=== PATIENT | female | born 1955 | race Caucasian/White ===

== ENCOUNTER 2018-01-14 10:55 | Outpatient (CLI) | payer MEDICARE, MEDICAID | END 2018-01-14 10:56 | disposition home or self-care (01) | LOC: BICMAMMO 10:55 | PROVIDERS: ATTEND Family Medicine | DX: Z12.31 Encounter for screening mammogram for malignant neoplasm of breast (principal); Z80.3 Family history of malignant neoplasm of breast | CPT/HCPCS: 77063; 77067 ==

== ENCOUNTER 2019-01-15 09:17 | Outpatient (CLI) | payer MEDICARE, MEDICAID ==
--- NOTE | 2019-01-15 11:11 | MMO ---
Bilateral MAMMO Bilat Screen [facility]. CLINICAL HISTORY: Patient is 63 years old and is seen for screening. The patient has the following family history of breast cancer: half sister, malignant (generic), SHARE SAME DAD. The patient has no personal history of cancer. VIEWS: The views performed were: bilateral craniocaudal with tomosynthesis; bilateral mediolateral oblique with tomosynthesis; and left craniocaudal. FILMS COMPARED: The present examination has been compared to prior imaging studies performed at [facility] on 11/18/2013, 11/11/2015, 11/12/2016 and 01/14/2018. MAMMOGRAM FINDINGS: The breasts are almost entirely fat. There are stable benign appearing calcifications seen in both breasts. There are no suspicious masses, suspicious calcifications, or new areas of architectural distortion. IMPRESSION: THERE IS NO MAMMOGRAPHIC EVIDENCE OF MALIGNANCY. A ROUTINE FOLLOW-UP MAMMOGRAM IN 1 YEAR IS RECOMMENDED. THE RESULTS OF THIS EXAM WERE SENT TO THE PATIENT. ACR BI-RADS Category 2 - Benign finding MAMMOGRAPHY NOTE: 1. A negative mammogram report should not delay a biopsy if a dominant of clinically suspicious mass is present. 2. Approximately 10% to 15% of breast cancers are not detected by mammography. 3. Adenosis and dense breasts may obscure an underlying neoplasm.
--- NOTE | 2019-01-15 12:14 | BD ---
DEXA BONE DENSITY STUDY: Date: 01/15/19 COMPARISON: None. HISTORY: 63-year-old postmenopausal female for screening for osteoporosis. FINDINGS: Lumbar Spine: BMD (g/cm2) L1 0.890 T-Score: -0.9 L2 0.909 T-Score: -1.1 L3 0.971 T-Score: -1.0 L4 0.982 T-Score: -0.7 L1-L4 0.942 T-Score: -1.0 Femoral Neck: 0.616 T-Score: -2.1 Total Femur: 0.927 T-Score: -1.7 IMPRESSION: Osteopenia. This patient has a 10 year WHO fracture risk of a major osteoporotic fracture of 9.1% and hip fracture of 1.3%. POS: [facility]PC
== END 2019-01-15 09:18 | disposition home or self-care (01) ==
LOC: BICMAMMO 09:17
PROVIDERS: ATTEND Family Medicine
DX: Z12.31 Encounter for screening mammogram for malignant neoplasm of breast (principal); N95.9 Unspecified menopausal and perimenopausal disorder; M85.89 Other specified disorders of bone density and structure, multiple sites; Z80.3 Family history of malignant neoplasm of breast
CPT/HCPCS: 77063; 77067; 77080

== ENCOUNTER → 2019-01-22 | Day surgery (SDC) | payer MEDICARE, MEDICAID ==
[2019-01-21 08:42] VITALS: BMI 47.3
[~2019-01-22] MED LIST: PROPOFOL 200 MG/20 ML VIAL ONE
--- NOTE | 2019-01-22 16:53 | OP ---
DATE OF PROCEDURE: 01/22/2019 TITLE OF PROCEDURE: Colonoscopy. PREPROCEDURE DIAGNOSES: 1. History of colon polyps. 2. Last colonoscopy performed in 2013. 3. Family history of colon cancer in her brother at age less than 60. POSTPROCEDURE DIAGNOSES: 1. Exam to proximal ascending colon; good bowel preparation. 2. Diffusely redundant colon; unable to directly examine the cecum. 3. Occasional small diverticular orifices, sigmoid colon. 4. Small internal hemorrhoids. 5. Otherwise normal colonoscopy. DESCRIPTION OF PROCEDURE: Written informed consent was obtained. The patient was brought to the endoscopy suite. Total intravenous anesthesia was provided by Mr. Rick Barajas CRNA. The patient was placed in the left lateral decubitus position. A digital rectal exam revealed two small external hemorrhoids that were not thrombosed. A Pentax videocolonoscope was inserted through the anal canal and advanced under direct visualization to the proximal ascending colon. Position in the proximal ascending colon was verified by identification of the ileocecal valve. Due to the diffuse redundancy of the colon, the colonoscope could not be safely advanced to the cecum. The cecum was not examined. Endoscopic findings revealed a grossly normal appearing colonic mucosa with no evidence of inflammation or polyp. Occasional small diverticular orifices were noted in the sigmoid colon. There was no evidence of active bleeding from the diverticulosis. A retroflex exam in the rectum demonstrated small internal hemorrhoids. The colon was decompressed as the colonoscope was removed from the patient. She was transferred to the Day Stay Surgery area for postprocedure monitoring. There were no immediate complications. RECOMMENDATIONS: 1. Resume previous medications. 2. Resume previous diet. 3. For screening purposes, would recommend repeating a colonoscopy in 5 years. 4. Follow up in GI Clinic as needed. Job ID: [id number]
== END ==
LOC: SDC 11:47
PROVIDERS: ATTEND Internal Medicine Gastroenterology
PROC: 0DJD8ZZ Inspection of Lower Intestinal Tract, Via Natural or Artificial Opening Endoscopic (ICD-10-PCS; principal; 2019-01-22)
DX: Z12.11 Encounter for screening for malignant neoplasm of colon (principal); Z86.010 Personal history of colon polyps; Z80.0 Family history of malignant neoplasm of digestive organs